=== PATIENT | female | born 1975 | race Two or more races ===

== ENCOUNTER 2019-07-02 00:28 | Emergency (ER) | payer MEDICAID ==
[~2019-07-02] VITALS: Ht 165.1 cm; Wt 99.8 kg
[2019-07-02 00:33] VITALS: BP 145/88
== END 2019-07-02 01:05 | disposition left against medical advice (07) ==
LOC: ER 00:32
DX: S60.469A Insect bite (nonvenomous) of unspecified finger, initial encounter (principal); Z53.21 Procedure and treatment not carried out due to patient leaving prior to being seen by health care provider; W57.XXXA Bitten or stung by nonvenomous insect and other nonvenomous arthropods, initial encounter; Y93.89 Activity, other specified; Y92.89 Other specified places as the place of occurrence of the external cause; Y99.8 Other external cause status